=== PATIENT | female | born 1980 | race Caucasian/White ===

== ENCOUNTER 2023-06-10 16:32 | Emergency (ER) | payer MEDICAID ==
[2023-06-10 16:50] VITALS: BP 136/87; O2SAT 100
--- NOTE | 2023-06-10 17:12 | XRAY Report ---
PROCEDURE: Chest 1 View X-Ray INDICATIONS: Chest pain TECHNIQUE: One view of the chest was acquired. COMPARISON: None. FINDINGS: Surgical changes and devices: None. Lungs and pleura: No pleural effusions or pneumothorax. Lungs are clear. Mediastinum: Mediastinal contours appear normal. Heart size is normal. Bones and chest wall: No suspicious bony lesions. Overlying soft tissues appear unremarkable. IMPRESSION: No acute cardiopulmonary process. Reviewed by: Gabe Delacruz MD on 06/10/2023 5:10 PM PST Approved by: Gabe Delacruz MD on 06/10/2023 5:10 PM PST Station ID: [id number]
[2023-06-10 17:16] LABS: BASOPHILS % (AUTO) 0.5 %; EOSINOPHILS % (AUTO) 0.3 %; HCT - HEMATOCRIT 38.3 % (37.0-47.0); HGB - HEMOGLOBIN 12.3 g/dL (12.0-16.0); LYMPHOCYTES # (AUTO) 2.3 10^3/uL (1.5-3.5); LYMPHOCYTES % (AUTO) 34.5 %; MEAN CORPUSCULAR HGB CONC 32.1 g/dL (32.0-36.0); MEAN CORPUSCULAR VOLUME 93.4 fL (81.0-99.0); MEAN PLATELET VOLUME 10.7 fL (7.9-10.8); MONOCYTES # (AUTO) 0.5 10^3/uL (0.0-1.0); MONOCYTES % (AUTO) 7.4 %; NEUTROPHILS # (AUTO) 3.7 10^3/uL (1.5-6.6); NEUTROPHILS % (AUTO) 57.1 %; PLT - PLATELET COUNT 279 10^3/uL (130-450); RED CELL DISTRIBUTION WIDTH 12.3 % (12.0-15.0); WHITE BLOOD COUNT 6.5 x10^3/uL (4.8-10.8)
[2023-06-10 17:38] LABS: ALBUMIN 4.7 g/dL (3.2-5.5); ALBUMIN/GLOBULIN RATIO 1.3 (1.0-2.2); BILIRUBIN,TOTAL 0.3 mg/dL (0.2-1.0); CALCIUM 9.9 mg/dL (8.5-10.3); CREATININE 0.7 mg/dL (0.6-1.3); POTASSIUM 3.5 mmol/L (3.5-4.5); TOTAL PROTEIN 8.3 g/dL (6.4-8.9)
[2023-06-10] MEDS ORDERED: MAG HYDROX/AL HYDROX/SIMETH 30 ML UDC PO STA (18:12)
[2023-06-10] MEDS ORDERED: LIDOCAINE VISCOUS 2% 15 ML UDC MM STA (18:12)
--- NOTE | 2023-06-10 18:13 | ED Physician Documentation ---
PD HPI CHEST PAIN - Stated complaint Stated Complaint: CHEST TIGHTNESS/BURNING - Chief complaint Chief Complaint: Cardiac - History obtained from History obtained from: Patient - Additional information Additional information: 42-year-old woman without history of heart or GI disease was eating a waffle yesterday and during swallowing developed a burning pain that she has had ever since that is still worse when she swallows but is able to tolerate p.o. She is not short of breath with it. She was seen at the urgent care and there was a concern for esophageal food obstruction even though she is tolerating p.o. still and was sent here for further evaluation and treatment. 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 - Present Medications Home Medications: Ambulatory Orders Medication Instructions Recorded Confirmed Omeprazole 40 mg PO DAILY #30 cap 06/10/23 - Allergies Allergies/Adverse Reactions: Allergies Allergy/AdvReac Type Severity Reaction Status Date / Time No Known Drug Allergies Allergy Verified 06/10/23 16:46 - Social History Does the pt smoke?: No Smoking Status: Never smoker PD ED PE NORMAL - Vitals Vital signs reviewed: Yes - General General: Alert and oriented X 3, No acute distress - Cardiac Cardiac: RRR, No murmur - Respiratory Respiratory: No respiratory distress, Clear bilaterally - Abdomen Abdomen: Non tender - Neuro Neuro: Alert and oriented X 3, Normal speech - Psych Psych: Normal mood, Normal affect Results - Vitals Vitals: Vital Signs - 24 hr 06/10/23 16:43 Temperature 36.2 C L Heart Rate 81 Respiratory 15 Rate Blood Pressure 136/87 H O2 Saturation 100 - EKG (time done) 1651 EKG releavant findings:: EKG personally interpreted by author of this note. Relevant findings are: Rate: Rate (enter#) (70) Rhythm: NSR [place]: Normal Intervals: Normal [place] QRS: Normal Ischemia: Normal ST segments - Labs Labs: Laboratory Tests 06/10/23 06/10/23 17:11 17:11 WBC 6.5 RBC 4.10 L Hgb 12.3 Hct 38.3 MCV 93.4 MCH 30.0 MCHC 32.1 RDW 12.3 Plt Count 279 MPV 10.7 Neut # (Auto) 3.7 Lymph # (Auto) 2.3 [place] # (Auto) 0.5 Eos # (Auto) 0.0 Baso # (Auto) 0.0 Absolute Nucleated RBC 0.00 Nucleated RBC % 0.0 Sodium 136 Potassium 3.5 Chloride 102 Carbon Dioxide 27 Anion Gap 7.0 BUN 14 Creatinine 0.7 Estimated GFR (MDRD) 91 Glucose 91 Calcium 9.9 Total Bilirubin 0.3 AST 17 ALT 18 Alkaline Phosphatase 101 Troponin I High Sens 2.3 Total Protein 8.3 Albumin 4.7 Globulin 3.6 Albumin/Globulin Ratio 1.3 Lipase 13 - Rads (name of study) 1 view chest x-ray Relevant Findings:: Final report received, EMP independent interpretation of test PD Medical Decision Making - ED course Complexity details: reviewed results (CBC, CMP, troponin all normal/negative. Single view chest x-ray unremarkable.) ED course: 42-year-old woman presents with what sounds like esophageal pain relating to eating yesterday but there is no clinical evidence of esophageal obstruction and there is no clinical indication for urgent endoscopy. After GI cocktail she was pain-free. Discussed soft diet for few days and will start a PPI. Departure - Departure Disposition: 01 Home, Self Care Clinical Impression: Esophageal pain Condition: Good Record reviewed to determine appropriate education?: Yes Instructions: ED Chest Pain Atypical Unkn Cause Prescriptions: Omeprazole 40 mg PO DAILY #30 cap Comments: As discussed, all of your symptoms point to an esophageal injury as the source of your pain. There is no evidence of cardiac issue and I suspect you will be better in a few days. Recommend a soft diet and the omeprazole until better. Return for new or worsening symptoms. If symptoms are persistent follow-up with your doctor for consideration of upper endoscopy but doubt this will be necessary. Forms: PCP List Discharge Date/Time: 06/10/23 19:38
[2023-06-10 18:15] LABS: TROPONIN I HIGH SENSITIVITY 2.3 ng/L (2.3-14.8)
[2023-06-10] MEDS ORDERED: LIDOCAINE VISCOUS 2% 15 ML ORAL SYRINGE MM STA (18:39)
[2023-06-10] MEDS ORDERED: PANTOPRAZOLE 40 MG TABLET PO STA (19:13)
== END 2023-06-10 19:38 | disposition home or self-care (01) ==
LOC: ED 16:32
DX: K22.89 Other specified disease of esophagus (principal); I10 Essential (primary) hypertension
CPT/HCPCS: 36415; 71045; 80053; 83690; 84484; 85025; 93005; 99284; A9270

== ENCOUNTER 2023-11-02 10:15 | Outpatient (CLI) | payer MEDICAID | END 2023-11-02 10:30 | disposition home or self-care (01) | LOC: LAB.N 10:15 | PROVIDERS: ATTEND Physician Assistant Medical | DX: J02.9 Acute pharyngitis, unspecified (principal) | CPT/HCPCS: 87070 ==

== ENCOUNTER 2023-11-06 10:10 | Emergency (ER) | payer MEDICAID ==
--- NOTE | 2023-11-06 11:14 | ED Physician Documentation ---
PD HPI HEADACHE - Stated complaint Stated Complaint: MIGRAINE/DIZZY - Chief complaint Chief Complaint: Neuro - History obtained from History obtained from: Patient - Additional information Additional information: Otherwise healthy 43-year-old woman with history of migraines. She had what she thinks is a pretty normal migraine headache starting this morning at 5 AM. She is on her menses and oftentimes that is a trigger for her migraines. It is a little different than normal as it seems to be more circumferential than one- sided. She is nauseous and has been vomiting with light sensitivity with it as well. She tried Tylenol at home without relief. She has had to come to urgent cares etc. in the past for migraines but it has been sometime. She denies fevers or neck stiffness. 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 - Present Medications Home Medications: Ambulatory Orders Medication Instructions Recorded Confirmed Collagen/Biotin/Ascorbic Acid 1 each PO DAILY 11/06/23 11/06/23 [Collagen 1500 Plus C Capsule] Multivitamin 1 each PO DAILY 11/06/23 11/06/23 SUMAtriptan [Imitrex] 25 mg PO BID PRN #10 tablet 11/06/23 - Allergies Allergies/Adverse Reactions: Allergies Allergy/AdvReac Type Severity Reaction Status Date / Time No Known Drug Allergies Allergy Verified 11/06/23 10:22 - Social History Does the pt smoke?: No Smoking Status: Never smoker Does the pt drink ETOH?: No Does the pt have substance abuse?: No - POLST Patient has POLST: No PD ED PE NORMAL - Vitals Vital signs reviewed: Yes - General General: Alert and oriented X 3, Other (Appears uncomfortable and light sensitive) - HEENT HEENT: PERRL, EOMI - Neck Neck: Supple, no meningeal sign, No bony TTP - Cardiac Cardiac: RRR, No murmur - Respiratory Respiratory: No respiratory distress - Neuro Neuro: Alert and oriented X 3, 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 As such I doubt subarachnoid hemorrhage. There are no infectious symptoms such as fever or stiff neck to make me suspect meningitis. No carbon monoxide exposure by history. Initial orders were IV with saline, dexamethasone 10 mg, Reglan 10 mg, Toradol 15 mg, and Benadryl 25 mg. On reevaluation about noon she had gone from a 9 on the pain score to a 5. When queried if she wanted more medications or time or discharge, she said she would like a little more time. On reevaluation at 12:40 PM pain was down to a 4. She was feeling pretty much ready to go but was okay with another dose of Toradol and trial of subcu Imitrex. Departure - Departure Disposition: 01 Home, Self Care Clinical Impression: Migraine Qualifiers: Migraine type: unspecified Status migrainosus presence: with status migrainosus Intractability: intractable Qualified Code(s): G43.911 - Migraine, unspecified, intractable, with status migrainosus Condition: Good Record reviewed to determine appropriate education?: Yes Instructions: ED Headache Migraine Prescriptions: SUMAtriptan [Imitrex] 25 mg PO BID PRN #10 tablet PRN Reason: Headache Comments: You are seen today for a migraine. You received some migraine medication with improvement. I am also prescribing some Imitrex for abortive therapy for next time. Call your doctor to arrange a follow-up appointment, make the next available appointment. In the interim, return anytime if worse or if new symptoms develop. Forms: PCP List
[2023-11-06] MEDS: SODIUM CHLORIDE 0.9% 1,000 ML IV STA (11:23)
[2023-11-06] MEDS: diphenhydrAMINE INJ 50 MG/ML VIAL IVP STA (11:23)
[2023-11-06] MEDS: METOCLOPRAMIDE 10 MG/2 ML VIAL IVP STA (11:24)
[2023-11-06] MEDS: KETOROLAC 15 MG/ML VIAL IVP STA ×2 (11:24→12:50)
[2023-11-06] MEDS: DEXAMETHASONE 10 MG/ML VIAL IVP STA (11:24)
[2023-11-06] MEDS: SUMAtriptan 6 MG/0.5 ML VIAL SUBQ STA (12:51)
[2023-11-06 13:08] VITALS: BP 131/78; O2SAT 100
== END 2023-11-06 13:05 | disposition home or self-care (01) ==
LOC: ED 10:10
DX: G43.911 Migraine, unspecified, intractable, with status migrainosus (principal); I10 Essential (primary) hypertension; E78.00 Pure hypercholesterolemia, unspecified; Z79.899 Other long term (current) drug therapy
CPT/HCPCS: 36415; 96372; 96374; 96375; 99283; 99285; J1200; J2765

== ENCOUNTER 2023-11-10 11:13 | Outpatient (CLI) | payer MEDICAID ==
--- NOTE | 2023-11-11 09:53 | Mammography Report ---
BILATERAL DIGITAL SCREENING MAMMOGRAM 3D/2D: 11/10/2023 CLINICAL: Routine screening. Comparison is made to exams dated: 05/31/2022 mammogram and 05/04/2021 mammogram - [facility]. There are scattered areas of fibroglandular density in both breasts (category b / 25%-50% glandular t issue). No significant masses, calcifications, or other findings are seen in either breast. There has been no significant interval change. IMPRESSION: NEGATIVE There is no mammographic evidence of malignancy. A 1 year screening mammogram is recommended. Based on the Tyrer Cuzick model (a risk assessment model) the patient's lifetime risk is 9.2% and her 10 year risk is 1.7%. According to the ACR, ACS, and NCCN guidelines, an annual breast MRI exam cassandra g with mammogram is recommended if the patient's lifetime risk is 20% or greater. This exam was interpreted at Station ID: [id number]. NOTE: For mammograms, a report in lay terms will be sent to the patient. Approximately 15% of breast malignancies will not be visualized mammographically. In the management of a palpable breast mass, a negative mammogram must not discourage biopsy of a clinically suspicious lesion. Electronically Signed By: Vidhya brownlee/fermin:11/10/2023 12:51:01 letter sent: No_Letter ACR BI-RADS Category 1: Negative 3341F PARENCHYMAL PATTERN: (A) - The breast(s) demonstrate(s) scattered fibroglandular densities. BI-RADS CATEGORY: (1) - 1 RECOMMENDATION: (ANNUAL) - Recommend routine annual screening mammography. [id number] 1 year screening LATERALITY: (B)
== END 2023-11-10 11:14 | disposition home or self-care (01) ==
LOC: DI 11:13
PROVIDERS: ATTEND Nurse Practitioner
DX: Z12.31 Encounter for screening mammogram for malignant neoplasm of breast (principal); R92.323 Mammographic fibroglandular density, bilateral breasts